=== PATIENT | male | born 1965 | race Caucasian/White ===

== ENCOUNTER 2023-05-16 00:15 | Day surgery (SDC) | payer OTHER, SELFPAY ==
[2023-05-04 13:40] VITALS: BMI 28.4
--- NOTE | 2023-05-13 11:22 | SUR.PREOP ---
Patient called regarding upcoming procedure. Voicemail left regarding appointment times.
--- NOTE | 2023-05-16 10:38 | WPDANESEPPF ---
Anes - Initial Pre Proc Eval Procedure: Operation Date: 05/16/23 11:30 Proposed Procedures p Esophagogastroduodenoscopy & Colonoscopy - Gianfranco Galdamez MD Date/Time: 05/16/23 10:38 Surgeon: Gianrfanco Galdamez MD Pre Op Diagnosis: GERD,hx of digestive system diseases, Crohn's Patient Data Age: 58 Gender: M Height: 1.68 m Weight: 80 kg Allergies Allergy/AdvReac Type Severity Reaction Status Date / Time No Known Allergies Allergy Verified 05/16/23 10:22 Home Medications Medication Instructions Recorded Confirmed Type aliskiren 300 mg tablet (Tekturna) 300 mg PO DAILY 04/28/23 05/04/23 History amlodipine 5 mg tablet (Norvasc) 5 mg PO DAILY 04/28/23 05/04/23 History atorvastatin 10 mg tablet (Lipitor) 10 mg PO DAILY 04/28/23 05/04/23 History budesonide 3 mg 9 mg PO QAM 8 weeks #168 ea 05/03/23 05/03/23 Rx capsule,delayed,extended release buspirone 30 mg tablet 30 mg PO BID 05/03/23 05/04/23 History chlorthalidone 25 mg tablet 25 mg PO DAILY 05/03/23 05/04/23 History colestipol 1 gram tablet 1 g PO BID #60 tabs 05/03/23 05/03/23 Rx fenofibrate micronized 134 mg 134 mg PO DAILY 05/03/23 05/04/23 History capsule hydroxychloroquine 400 mg tablet 400 mg PO DAILY 05/03/23 05/04/23 History insulin aspart See Rx Instructions .Route .COMPLEX 05/03/23 05/04/23 History (niacinamide)(U-100) 100 unit/mL(3 mL) subcutaneous pen (Fiasp FlexTouch U-100 Insulin) insulin glargine U-300 conc 300 70 unit subcut QACDINNER 05/03/23 05/04/23 History unit/mL (3 mL) subcutaneous pen (Toujeo Max U-300 SoloStar) zolpidem 12.5 mg tablet,extended 12.5 mg PO QHS 05/03/23 05/04/23 History release,multiphase I-Kvurgs-R-Cysteine 600 mg PO DAILY 05/04/23 05/04/23 History alpha lipoic acid 200 mg tablet 200 mg PO DAILY 05/04/23 05/04/23 History ascorbic acid (vitamin C) 1,000 mg 1 g PO DAILY 05/04/23 05/04/23 History tablet (Vitamin C With Estephania Hips) benfotiamine 300 mg PO BID 05/04/23 05/04/23 History certolizumab pegol 400 mg/2 mL 400 mg subcut [id number] 05/04/23 05/04/23 History (200 mg/mL x2) subcutaneous syringe kit (Cimzia) cholecalciferol (vitamin D3) 50 50 mcg PO DAILY 05/04/23 05/04/23 History mcg (2,000 unit) capsule (Vitamin D3) clonidine HCl 0.1 mg tablet 0.1 mg PO DAILY 05/04/23 05/04/23 History coQ10 (ubiquinol) 200 mg capsule 200 mg PO DAILY 05/04/23 05/04/23 History cyanocobalamin (vitamin B-12) 250 250 mcg PO DAILY 05/04/23 05/04/23 History mcg tablet (Vitamin B-12) dicyclomine 20 mg tablet 20 mg PO TID 05/04/23 05/04/23 History famotidine 40 mg tablet 40 mg PO BID 05/04/23 05/04/23 History folic acid 1 mg tablet 1 mg PO DAILY 05/04/23 05/04/23 History garlic 1,000 mg capsule 1,000 mg PO BID 05/04/23 05/04/23 History magnesium 250 mg tablet 250 mg PO DAILY 05/04/23 05/04/23 History melatonin 10 mg tablet 10 mg PO HS 05/04/23 05/04/23 History methotrexate (PF) 20 mg/0.8 mL 20 mg subcut WEEKLY 05/04/23 05/04/23 History subcutaneous syringe milk thistle 175 mg tablet 175 mg PO DAILY 05/04/23 05/04/23 History multivit with minerals-iron 18 1 tablet PO DAILY 05/04/23 05/04/23 History mg-folic ac 400 mcg-vit K 25 mcg tablet (Adults Multivitamin) omega 3-ogd-gzb-fish oil 900 1 cap PO DAILY 05/04/23 05/04/23 History mg-1,400 mg capsule,delayed release vitamin K2 100 mcg capsule 100 mcg PO DAILY 05/04/23 05/04/23 History zinc 50 mg tablet 50 mg PO DAILY 05/04/23 05/04/23 History ferrous sulfate 325 mg (65 mg 325 mg PO DAILY 1 month #30 tabs 05/16/23 Rx iron) tablet Patient hx anesthesia problems: none Family hx anesthesia problems: none Results Review: All pre-operative results and documents have been reviewed as part of the pre-operative evaluation. [facility] Past Medical History Medical History (Updated 05/03/23 @ 15:13 by Mica Rea, [employer]INATOR) Chronic diarrhea Crohn disease GERD (gastroesophageal reflux disease) Hematochezia High risk med
[2023-05-16 10:41] VITALS: BP 170/85; PULSE 87; RESP 20; TEMP 36.2; O2SAT 100; BMI 27.9
[2023-05-16] MEDS: LACTATED RINGERS 1,000 ML 150 ML IV CONT (10:45)
[2023-05-16 10:46] LABS: Glucose Point of Care 134 mg/dl (65-105)
--- NOTE | 2023-05-16 10:55 | WPDHPUPDATE1 ---
History and Physical Update Update Date/Time: 05/16/23 10:55 History and Physical has been reviewed, including an updated exam of the patient. There are NO changes in the patient's condition. Risks, benefits, and alternatives have been discussed and questions answered. Patient agrees to proceed with procedure.
--- NOTE | 2023-05-16 11:06 | SUR.OPER ---
EGD START: 1100; END: 1102. COLONOSCOPY START: 1107; END:1121.
[2023-05-16 11:26] VITALS: BP 97/39; PULSE 58; RESP 16; O2SAT 97
[2023-05-16 11:36] VITALS: BP 122/49; PULSE 64; RESP 16; O2SAT 97
[2023-05-16 11:46] VITALS: BP 124/68; PULSE 53; RESP 14; O2SAT 99
== END 2023-05-16 11:57 | disposition home health service (06) ==
PROVIDERS: PCP Physician Assistant; Visit Provider Internal Medicine Gastroenterology
PROC: 0DJ08ZZ Inspection of Upper Intestinal Tract, Via Natural or Artificial Opening Endoscopic (ICD-10-PCS; CPT 43235; principal; 2023-05-16 11:30)
DX: K50.10 Crohn's disease of large intestine without complications (principal); K21.9 Gastro-esophageal reflux disease without esophagitis; D64.9 Anemia, unspecified; Z79.4 Long term (current) use of insulin; Z79.899 Other long term (current) drug therapy; Z87.891 Personal history of nicotine dependence
CPT/HCPCS: 43239; 45380; 45385; 82948; 88305; J2001; J2371; J2704; J7120

== ENCOUNTER 2024-09-17 01:00 | Day surgery (SDC) | payer OTHER, SELFPAY ==
[2024-09-03 14:13] VITALS: BMI 31.6
--- OUTSIDE RECORDS SUMMARY | 2024-09-17 01:03 | XMS_ITS | Referral Summary ---
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 Name Role Phone Hima Pope Primary Care Provider Herman Jackson MD Unavailable Gianfranco Bailey MD Unavailable + Falguni Gonzalez MD Unavailable Encounters Date Type Department Care Team Description 07/31/2024 Orders Only [facility] Primary Care at [address] [place] [address] Hima Pope PA B12 deficiency (Primary Dx); Other iron deficiency anemia; Hypertension associated with diabetes (HCC); Type 2 diabetes mellitus with hyperglycemia, with long-term current use of insulin (HCC); Stage 3a chronic kidney disease (HCC) 07/30/2024 3:30 PM CDT Office Visit [facility] Primary Care at [address] [place] [address] Hima Pope PA Hypertension associated with diabetes (CMS/HCC) (Primary Dx); Type 2 diabetes mellitus with hyperglycemia, with long-term current use of insulin (HCC); Rheumatoid arthritis involving multiple sites with positive rheumatoid factor (HCC); Stage 3a chronic kidney disease (HCC); B12 deficiency; Pure hypercholesterolemia; Class 1 obesity with body mass index (BMI) of 33.0 to 33.9 in adult, unspecified obesity type, unspecified whether serious comorbidity present; Crohn's disease of small and large intestines with complication (HCC); Other iron deficiency anemia 07/24/2024 Orders Only [facility] Primary Care at [place] [address] [facility] [address] [place] [address] Hima Pope PA 06/18/2024 2:00 PM CDT Lab [facility] [address] [facility] [facility] [address] [place] [address] Iron deficiency anemia due to chronic blood loss 06/18/2024 2:30 PM CDT Office Visit [facility] [address] [place] [address] Medical Office [address] [place] [id number] Narayan Bourgeois MD Iron deficiency anemia due to chronic blood loss (Primary Dx); Crohn's disease of small and large intestines with complication (HCC) from Last 3 Months Allergies No known active allergies Medications garlic 100 mg tablet Take according to hrfn-[id number] r package directions 0 0 11/13/19 08 Active Additional Information Patient taking differently:100 mgoral 2 times daily, Reported on 07/30/2024 omega 1-rna-evy-fish oil (OMEGA-3 FISH OIL) 910-1,400 mg capsule as directed 0 06/17/19 13 Active Additional Information Patient taking differently: (No dose reported), Reported on 07/30/2024 ascorbic acid (ascorbic acid with ramona hips) 1,000 mg tablet po daily 0 06/17/19 13 Active Additional Information Patient taking differently:1,000 mgoral Daily, Reported on 07/30/2024 folic acid (FOLVITE) 1 mg tablet take 1 Tablet (1MG) by oral route every day 30 5 08/31/19 13 Active Additional Information Patient taking differently:1 mgoral Daily, Reported on 07/30/2024 multivitamin (ONE DAILY) tablet tablet take 1 tablet by ORAL route every day with food 0 09/19/19 10 Active coenzyme Q10 200 mg capsule Take 1 capsule (200 mg total) by mouth daily Active cyanocobalamin (Vitamin B-12) 500 mcg tabletIndicati ons:Prevention of Vitamin B12 Deficiency Take 1 tablet (500 mcg total) by mouth daily Active milk thistle 175 mg tablet Take 1 tablet (175 mg total) by mouth daily Active ACCU-CHEK FASTCLIX LANCING DEV kit USE TO TEST GLUCOSE 3 TO 4 TIMES DAILY 1 each 03/15/20 19 Active hydroxychloroq uine (PLAQUENIL) 200 mg tablet 07/19/19 20 Active BD Insulin Syringe Ultra-Fine 1 mL 31 gauge x 5/16 syringeIndicat ions:Type 2 diabetes mellitus with hyperglycemia, with long-term current use of insulin (HCC) USE TO INJECT INSULIN TWO TIMES A DAY 200 each 3 02/19/20 20 Active melatonin 10 mg capsule Take 10 mg by mouth nightly Active zinc 50 mg tablet Take by mouth Active benfotiamine 150 mg capsule Take by mouth A ctive alpha lipoic acid 300 mg capsule 1 capsule (300 mg total) Active busPIRone (BUSPAR) 30 mg tablet TAKE ONE (1) TABLET BY MOUTH TWICE DAILY 180 tablet 14 01/14/20 22 Active dicyclomine (BentyL) 20 mg tablet Take 1 tablet (20 mg total) by mouth every 6 (six) hours As needed 120 tablet 4 04/11/19 24 Active budesonide EC (ENTOCORT EC) 3 mg 24 hr capsule Take 3 capsules (9 mg total) by mouth every morning 05/16/19 24 Active colestipoL (COLESTID) 1 gram tablet Take 1 tablet (1 g total) by mouth 2 (two) times a day Active pen needle, diabetic (Pen Needle) 31 gauge x 5/16 needle Use to inject 4 times daily as directed 200 each 11 09/27/19 24 Active olmesartan (BENICAR) 40 mg tablet Take 1 tablet (40 mg total) by mouth daily 90 tablet 4 03/20/20 24 025 Active insulin degludec (TRESIBA) 100 unit/mL (3 mL) pen for injection Inject 0.7 mL (70 Units total) under the skin daily 63 mL 3 03/21/20 24 Active lancets (Accu-Chek Fastclix Lancet Drum) miscIndication s:Type 2 diabetes mellitus with hyperglycemia, with long-term current use of insulin (HCC) USE ONE NEW LANCET FOR BLOOD GLUCOSE MONITORING FOUR TIMES A DAY 306 each 1 06/05/19 25 Active zolpidem CR (AMBIEN CR) 12.5 mg CR tablet TAKE 1 TABLET BY MOUTH NIGHTLY NEEDED FOR SLEEP 90 tablet 06/23/19 25 Active blood glucose diagnostic (OneTouch Verio test strips) stripIndicatio ns:Type 2 diabetes mellitus with hyperglycemia, with long-term current use of insulin (HCC) USE TO CHECK SUGARS FOUR TIMES A DAY 400 strip 3 07/25/19 Active cloNIDine (CATAPRES) 0.1 mg tablet Take 1 tablet (0.1 mg total) by mouth nightly 90 tablet 11 07/25/19 25 Active famotidine (PEPCID) 40 mg tablet Take 1 tablet (40 mg total) by mouth 2 (two) times a day 180 tablet 3 07/25/19 25 Active amLODIPine (NORVASC) 5 mg tablet Take 1 tablet (5 mg total) by mouth daily 90 tablet 3 07/25/19 25 Active chlorthalidone (HYGROTON) 25 mg tablet Take 1 tablet (25 mg total) by mouth daily 90 tablet 07/25/19 25 Active fenofibrate micronized (LOFIBRA) 134 mg capsule Take 1 capsule (134 mg total) by mouth daily 90 capsule 07/25/19 25 Active upadacitinib (Rinvoq) 30 mg extended release tablet Take 1 tablet (30 mg total) by mouth daily Active atorvastatin (LIPITOR) 10 mg tablet Take 0.5 tablets (5 mg total) by mouth daily 45 tablet 3 07/31/19 25 Active insulin lispro (HumaLOG, ADMELOG) 100 unit/mL pen for injectionIndic ations:Type 2 diabetes mellitus with hyperglycemia, with long-term current use of insulin ([facility]) INJECT 10 UNITS UNDER THE SKIN 3 TIMES DAILY BEFORE MEALS 15 mL 3 09/15/19 25 Active insulin lispro (HumaLOG, ADMELOG) 100 unit/mL pen for injectionIndic ations:Type 2 diabetes mellitus with hyperglycemia, with long-term current use of insulin ([facility]) INJECT 10 UNITS UNDER THE SKIN 3 TIMES DAILY BEFORE MEALS 15 mL 3 03/08/20 24 025 Discontinued Active Problems Problem Noted Date Diagnosed Date CKD (chronic kidney disease) stage 3, GFR 30-59 ml/min 03/20/2024 Assessment & Plan (07/30/2024 10:17 AM CDT): He knows to avoid nephrotoxic drugs Iron deficiency anemia, unspecified 09/21/2021 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 Lipids great gets fall flu shot and suggest shingles shot Think about p shot serries. Pure hypercholesterolemia 12/28/2017 Assessment & Plan (07/30/2024 10:18 AM CDT): Counseled on heart healthy diet exercise Assessment & Plan (03/20/2024 2:14 PM RECORDER HELPER GRAVITY PROSPECTING): Counseled on heart healthy diet exercise Assessment & Plan (03/02/2022 4:19 PM RECORDER HELPER GRAVITY PROSPECTING): Chronic, well-controlled Continue current regimen Assessment & Plan (11/26/2021 3:29 PM CDT): ldl at 38 and trig 83 and will keep meds same discussed tgaper back on fenofibrte and or stati andnot wanting to cheange anything no added diet Given struggle to eat and tolerate foods frrom covid Assessment & Plan (08/25/2021 3:40 PM CDT): Chronic, well controlled Low fat Low cholesterol diet Exercise Continue statin therapy Assessment & Plan (02/19/2021 3:59 PM RECORDER HELPER GRAVITY PROSPECTING): LDL goal under 70 On Lipitor Assessment & Plan (08/14/2019 4:20 PM CDT): Goal of treatment , LDL cholesterol less than 100 ( less than 70 in patients with history of heart attacks and / or strokes ) NonHDL cholesterol ( total cholesterol minus HDL cholesterol ) goal less than 130 ( less than 100 in patients with history of heart attacks and / or strokes ) Low cholesterol, low fat diet was discussed and advised. Daily exercise Assessment & Plan (07/10/2019 8:38 AM CDT): ldl 67 and great on meds and no chages want here or lower or push meds if notYour cholesterol in the form of ldl (bad) cholesterol,hdl(good) cholesterol and triglycerides are monitored. The triglycerides respond to reduction/controll of your simple carbs/sugars In such items as sugared soda/sweet tea along with fruit juices(containing natural sugar) even if no added sugar is added. LDL cholesterol is reduced with reducing daily intake of fats and shena. saturated fats. The monosaturated fats like olive oil are not harmful except in the calories they contained. Whole milk cheese needs to be remembered along with whole milk products And limited. Assessment & Plan (02/14/2019 5:00 PM RECORDER HELPER GRAVITY PROSPECTING): ldl at 69 and gtreat and no changsYour cholesterol in the form of ldl (bad) cholesterol,hdl(good) cholesterol and triglycerides are monitored. The triglycerides respond to reduction/controll of your simple carbs/sugars In such items as sugared soda/sweet tea along with fruit juices(containing natural sugar) even if no added sugar is added. LDL cholesterol is reduced with reducing daily intake of fats and hsena. saturated fats. The monosaturated fats like olive oil are not harmful except in the calories they contained. Whole milk cheese needs to be remembered along with whole milk products And limited. Assessment & Plan (02/06/2019 3:38 PM RECORDER HELPER GRAVITY PROSPECTING): Goal of treatment , LDL cholesterol less than 100 ( less than 70 in patients with history of heart attacks and / or strokes ) NonHDL cholesterol ( total cholesterol minus HDL cholesterol ) goal less than 130 ( less than 100 in patients with history of heart attacks and / or strokes ) Low cholesterol, low fat diet was discussed and advised. Daily exercise On statin therapy Assessment & Plan (10/18/2018 4:40 PM CDT): ldl at 6.5 and good controll no changesYour cholesterol in the form of ldl (bad) cholesterol,hdl(good) cholesterol and triglycerides are monitored. The triglycerides respond to reduction/controll of your simple carbs/sugars In such items as sugared soda/sweet tea along with fruit juices(containing natural sugar) even if no added sugar is added. LDL cholesterol is reduced with reducing daily intake of fats and shena. saturated fats. The monosaturated fats like olive oil are not harmful except in the calories they contained. Whole milk cheese needs to be remembered along with whole milk products And limited. Assessment & Plan (08/02/2018 8:46 AM CDT): Goal of treatment , LDL cholesterol less than 100 ( less than 70 in patients with history of heart attacks and / or strokes ) NonHDL cholesterol ( total cholesterol minus HDL cholesterol ) goal less than 130 ( less than 100 in patients with history of heart attacks and / or strokes ) Low cholesterol, low fat diet was discussed and advised. Daily exercise Does not tolerate statins Would start Vascepa. Insurance not covering. Assessment & Plan (06/23/2018 3:56 PM CDT): ldl at 67 , discussed checking into coverage for mascepa 2000 bid. Stopping the fenofibrate and starting atorvastin 10. If not then stay on fenofibrate. Seeing jose daniel montano.m. Assessment & Plan (01/31/2018 3:24 PM CDT): Goal of treatment , LDL cholesterol less than 100 ( less than 70 in patients with history of heart attacks and / or strokes ) NonHDL cholesterol ( total cholesterol minus HDL cholesterol ) goal less than 130 ( less than 100 in patients with history of heart attacks and / or strokes ) Low cholesterol, low fat diet was discussed and advised. Daily exercise On statin therapy Assessment & Plan (12/28/2017 5:56 PM CDT): ldl at 85 and great. No changesYour cholesterol in the form of ldl (bad) cholesterol,hdl(good) cholesterol and triglycerides are monitored. The triglycerides respond to reduction/controll of your simple carbs/sugars In such items as sugared soda/sweet tea along with fruit juices(containing natural sugar) even if no added sugar is added. LDL cholesterol is reduced with reducing daily intake of fats and shena. saturated fats. The monosaturated fats like olive oil are not harmful except in the calories they contained. Whole milk cheese needs to be remembered along with whole milk products And limited. B12 deficiency 12/28/2017 Assessment & Plan (11/26/2021 3:29 PM CDT): b12 622 good Assessment & Plan (01/07/2021 3:54 PM CDT): b12 at 1192 and on 500 a day and will bvack off and r eport what takes Assessment & Plan (08/18/2020 3:14 PM CDT): Stay on b12 and check on return Assessment & Plan (04/16/2020 4:38 PM RECORDER HELPER GRAVITY PROSPECTING): b121 good and sta on meds as on Assessment & Plan (12/12/2019 8:54 AM CDT): Check on return Assessment & Plan (12/28/2017 5:48 PM CDT): Level at 364 and target above 400; take 500 5 days a week Low testosterone 04/27/2017 Assessment & Plan (12/12/2019 8:53 AM CDT): rtesolved with wt off likely reason Assessment & Plan (04/27/2017 4:46 PM RECORDER HELPER GRAVITY PROSPECTING): Mildly up and not at all sure itis mehthotrexate and expect to be steatatosis. Crohn's disease with complication 01/12/2017 Assessment & Plan (01/07/2021 3:56 PM CDT): Crohn stable and on meds Assessment & Plan (08/18/2020 3:14 PM CDT): On meds and congt roolled Assessment & Plan (04/16/2020 4:31 PM RECORDER HELPER GRAVITY PROSPECTING): Stable and cotn with gi rx Assessment & Plan (12/12/2019 8:54 AM CDT): Treated by gi Assessment & Plan (07/10/2019 8:37 AM CDT): Stopping antiinfolamtory and watch for flairs. Discussed antimalarials as something to discuss Assessment & Plan (10/18/2018 4:41 PM CDT): Seeing gi Assessment & Plan (08/24/2017 4:48 PM CDT): Se's and treated by rheum. Nocturia 12/15/2016 Assessment & Plan (02/14/2019 5:07 PM RECORDER HELPER GRAVITY PROSPECTING): Check psa Assessment & Plan (12/28/2017 5:59 PM CDT): Check psa Assessment & Plan (12/15/2016 5:40 PM CDT): Check psa o return Long-term current use of hig h risk medication other than anticoagulant 10/12/2016 Hypertension associated with diabetes 11/12/2015 Overview (07/09/2016): BENIGN HYPERTENSION Assessment & Plan (07/30/2024 10:17 AM CDT): Recommend DASH diet, heart healthy lifestyle, exercise. Discussed the risks of hypertension. Assessment & Plan (03/21/2024 6:01 PM RECORDER HELPER GRAVITY PROSPECTING): Chronic, well-controlled. Continue current regimen including olmesartan Assessment & Plan (03/20/2024 2:12 PM RECORDER HELPER GRAVITY PROSPECTING): Recommend DASH diet, heart healthy lifestyle, exercise. Discussed the risks of hypertension. Assessment & Plan (09/27/2023 2:51 PM CDT): Chronic, well controlled Continue current meds including Tekturna Assessment & Plan (03/22/2023 2:51 PM RECORDER HELPER GRAVITY PROSPECTING): Chronic, well controlled Continue current regimen, including amlodipine Assessment & Plan (03/11/2023 1:22 PM RECORDER HELPER GRAVITY PROSPECTING): Recommend DASH diet, heart healthy lifestyle, exercise. Discussed the risks of hypertension. Assessment & Plan (09/03/2022 2:36 PM CDT): Recommend DASH diet, heart healthy lifestyle, exercise. Discussed the risks of hypertension. Assessment & Plan (08/26/2022 4:30 PM CDT): Chronic, well-controlled Continue current regimen including chlorthalidone Assessment & Plan (03/04/2022 12:21 PM RECORDER HELPER GRAVITY PROSPECTING): Recommend DASH diet, heart-healthy lifestyle, exercise. Discussed the risks of hypertension. Assessment & Plan (03/02/2022 4:19 PM RECORDER HELPER GRAVITY PROSPECTING): Well controlled, Continue current regimen Assessment & Plan (11/26/2021 3:24 PM CDT): bp good and bld sugr under endo no specific diet changes. Assessment & Plan (08/25/2021 3:40 PM CDT): Chronic, well controlled Continue current meds Assessment & Plan (07/23/2021 12:42 PM CDT): Recommend DASH diet, heart-healthy lifestyle, exercise. Discussed the risks of hypertension. Assessment & Plan (06/22/2021 3:31 PM CDT): Recommend DASH diet, heart healthy lifestyle, exercise. Discussed the risks of hypertension. Assessment & Plan (01/07/2021 4:00 PM CDT): The bp good and no chagds in meds Hypertension, Medical treament revolves around weight control, salt management, and meds when necessary. long as weight loss is necessary and you are able to drop weight we can cont to monitor the blood pressure and not add meds. Once the weight is not changing then it becomes nesessary to add meds to be able to reach the goal bp. Assessment & Plan (08/19/2020 4:00 PM CDT): Goal blood pressure is less than 140/85 Low salt diet was discussed andd recommended The importance of daily aerobic exercise was also emphasized. Continue current meds, including NIKA-I or ARB, e.g. Assessment & Plan (08/18/2020 3:09 PM CDT): The bp on top touch high and a1c great at 6.3 and keep Sugar tight.Hypertension, Medical treament revolves around weight control, salt management, and meds when necessary. long as weight loss is necessary and you are able to drop weight we can cont to monitor the blood pressure and not add meds. Once the weight is not changing then it becomes nesessary to add meds to be able to reach the goal bp.Diabetes management or controll revolves around several core concepts : weight controll,controlling the intake of rapidly absorbed sugars(read simple carbs that get rapidly absorbed such as sweetened tea,sugared soda,fruit juices or portions of fruit over 1/2 cup at a time) as well at the need to increase the sugar burned up through an n increase in your baseline activity.Breads,potatotes(white,yellow,sweet are all the same),most cereals and noodles all breakdown to sugar rapidly. This rapid breakdown or absorption challenges the body into handling this surge of sugar. The more these factors are controlled the more the sugar will be controlled. Assessment & Plan (04/16/2020 4:34 PM RECORDER HELPER GRAVITY PROSPECTING): The bp here on high side and ask to bring I meter and isael sumner chesk as High here and good at home endo alsonoted to be up. And a1c tight at 6.2Hypertension, Medical treament revolves around weight control, salt management, and meds when necessary. long as weight loss is necessary and you are able to drop weight we can cont to monitor the blood pressure and not add meds. Once the weight is not changing then it becomes nesessary to add meds to be able to reach the goal bp.Diabetes management or controll revolves around several core concepts : weight controll,controlling the intake of rapidly absorbed sugars(read simple carbs that get rapidly absorbed such as sweetened tea,sugared soda,fruit juices or portions of fruit over 1/2 cup at a time) as well at the need to increase the sugar burned up through an n increase in your baseline activity.Breads,potatotes(white,yellow,sweet are all the same),most cereals and noodles all breakdown to sugar rapidly. This rapid breakdown or absorption challenges the body into handling this surge of sugar. The more these factors are controlled the more the sugar will be controlled. Assessment & Plan (02/19/2020 3:52 PM RECORDER HELPER GRAVITY PROSPECTING): Goal blood pressure is less than 140/85 Low salt diet was discussed andd recommended The importance of daily aerobic exercise was also emphasized. Continue current meds, Assessment & Plan (12/12/2019 8:47 AM CDT): bp well controlled and no changes in meds on bp and see's nick chavez Hypertension, Medical treament revolves around weight control, salt management, and meds when necessary. long as weight loss is necessary and you are able to drop weight we can cont to monitor the blood pressure and not add meds. Once the weight is not changing then it becomes nesessary to add meds to be able to reach the goal bp.Diabetes management or controll revolves around several core concepts : weight controll,controlling the intake of rapidly absorbed sugars(read simple carbs that get rapidly absorbed such as sweetened tea,sugared soda,fruit juices or portions of fruit over 1/2 cup at a time) as well at the need to increase the sugar burned up through an n increase in your baseline activity.Breads,potatotes(white,yellow,sweet are all the same),most cereals and noodles all breakdown to sugar rapidly. This rapid breakdown or absorption challenges the body into handling this surge of sugar. The more these factors are controlled the more the sugar will be controlled. Assessment & Plan (08/14/2019 4:20 PM CDT): Goal blood pressure is less than 140/85 Low salt diet recommended Daily aerobic exercise Continue current meds, including NIKA-I or ARB Assessment & Plan (07/10/2019 8:36 AM CDT): Reports bp less then 130/80 a1xc 6.2 and good no chans in meds for bp or d.m. cont watching and moptnioringHypertension, Medical treament revolves around weight control, salt management, and meds when necessary. long as weight loss is necessary and you are able to drop weight we can cont to monitor the blood pressure and not add meds. Once the weight is not changing then it becomes nesessary to add meds to be able to reach the goal bp.Diabetes management or controll revolves around several core concepts : weight controll,controlling the intake of rapidly absorbed sugars(read simple carbs that get rapidly absorbed such as sweetened tea,sugared soda,fruit juices or portions of fruit over 1/2 cup at a time) as well at the need to increase the sugar burned up through an n increase in your baseline activity.Breads,potatotes(white,yellow,sweet are all the same),most cereals and noodles all breakdown to sugar rapidly. This rapid breakdown or absorption challenges the body into handling this surge of sugar. The more these factors are controlled the more the sugar will be controlled. Assessment & Plan (02/14/2019 5:02 PM RECORDER HELPER GRAVITY PROSPECTING): The bp high and replace losartan 100 with avapro 300 and watch bp . a1c down to 5.8 Then a week later 6.2 and great. Hypertension, Medical treament revolves around weight control, salt management, and meds when necessary. long as weight loss is necessary and you are able to drop weight we can cont to monitor the blood pressure and not add meds. Once the weight is not changing then it becomes nesessary to add meds to be able to reach the goal bp.Diabetes management or controll revolves around several core concepts : weight controll,controlling the intake of rapidly absorbed sugars(read simple carbs that get rapidly absorbed such as sweetened tea,sugared soda,fruit juices or portions of fruit over 1/2 cup at a time) as well at the need to increase the sugar burned up through an n increase in your baseline activity.Breads,potatotes(white,yellow,sweet are all the same),most cereals and noodles all breakdown to sugar rapidly. This rapid breakdown or absorption challenges the body into handling this surge of sugar. The more these factors are controlled the more the sugar will be controlled. Assessment & Plan (02/06/2019 3:37 PM RECORDER HELPER GRAVITY PROSPECTING): Goal blood pressure is less than 140/85 Low salt diet recommended Daily aerobic exercise Continue current meds, including NIKA-I or ARB Assessment & Plan (10/18/2018 4:39 PM CDT): The bp high and will cheasnge to [place] and see if will drop enough and a1c at 6.5 great.Hypertension, Medical treament revolves around weight control, salt management, and meds when necessary. long as weight loss is necessary and you are able to drop weight we can cont to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 07/16/2024 7:02 AM CDT 07/16/2024 7:02 AM CDT Narrative [facility] - 07/17/2024 4:14 AM CDT FASTING:YES FASTING: YES us Hima PUENTES LAB BLOOD ORDERABLES Fi nal Result [facility] [address] [place] [address] * Lipid panel with reflex to direct LDL (07/16/2024 7:02 AM CDT) Pathologist [facility] Cholesterol 150 <200 mg/dL [facility] HDL 55 > OR = 40 mg/dL [facility] Triglycerides 116 <150 mg/dL [facility] LDL 75 mg/dL (calc) [facility] Comment: Reference range: <100 Desirable range <100 mg/dL for primary prevention; <70 mg/dL for patients with CHD or diabetic patients with > or = 2 CHD risk factors. LDL-C is now calculated using the Hayden-Erinn calculation, which is a validated novel method providing better accuracy than the Friedewald equation in the estimation of LDL-C. Hayden SS et al. KAMI. 2013;310(19): 9432-6389 (http://education.[employer].Aspen Evian/faq/ZDM098) Chol/HDL ratio 2.7 <5.0 (calc) [facility] Non-HDL, (LDL+VLDL) 95 <130 mg/dL (calc) [facility] Comment: For patients with diabetes plus 1 major ASCVD risk factor, treating to a non-HDL-C goal of <100 mg/dL (LDL-C of <70 mg/dL) is considered a therapeutic option. Blood 07/16/2024 7:02 AM CDT 07/16/2024 7:02 AM CDT Narrative [facility] - 07/17/2024 4:14 AM CDT FASTING:YES FASTING: YES Hima PUENTES LAB BLOOD ORDERABLES Fi nal Result Performing Organization Address [facility] Co de Phone Number [facility] [address] [place] [address] * Iron profile w/ IBC (07/16/2024 7:02 AM CDT) Pathologist [facility] Iron 149 50 - 180 mcg/dL [facility] TIBC 398 250 - 425 mcg/dL (calc) [facility] Iron saturation 37 20 - 48 % (calc) [facility] Blood 07/16/2024 7:02 AM CDT 07/16/2024 7:02 AM CDT Narrative [facility] - 07/17/2024 4:14 AM CDT FASTING:YES FASTING: YES Hima PUENTES LAB BLOOD ORDERABLES Fi nal Result Performing Organization Address [facility] de Phone Number [facility] [address] [place] [address] * (ABNORMAL) CBC with auto differential (07/16/2024 7:02 AM CDT) WBC 7.8 3.8 - 10.8 Thousand/u L [facility] RBC, POC 5.06 4.20 - 5.80 Million/uL [facility] Hgb 14.9 13.2 - 17.1 g/dL [facility] Hct 45.6 38.5 - 50.0 % [facility] MCV 90.1 80.0 - 100.0 fL [facility] MCH 29.4 27.0 - 33.0 pg [facility] MCHC 32.7 32.0 - 36.0 g/dL [facility] Comment: For adults, a slight decrease in the calculated MCHC value (in the range of 30 to 32 g/dL) is most likely not clinically significant; however, it should be interpreted with caution in correlation with other red cell parameters and the patient's clinical condition. Rdw 12.6 11.0 - 15.0 % [facility] Platelets 365 140 - 400 Thousand/u L [facility] MPV 9.6 7.5 - 12.5 fL [facility] Neutrophils, abs 3,830 1,500 - 7,800 cells/uL [facility] Lymphocytes, abs 2,480 850 - 3,900 cells/uL [facility] Monocyte abs 1,162(H) 200 - 950 cells/uL [facility] Eosinophils, abs 289 15 - 500 cells/uL [facility] Basophils, abs 39 0 - 200 cells/uL [facility] Neutrophils 49.1 % [facility] Lymphocyte pct 31.8 % [facility] Monocytes 14.9 % [facility] Eosinophils 3.7 % [facility] Basophils 0.5 % [facility] Blood 07/16/2024 7:02 AM CDT 07/16/2024 7:02 AM CDT Narrative [facility] - 07/17/2024 4:14 AM CDT FASTING:YES FASTING: YES us Hima PUENTES LAB BLOOD ORDERABLES Fi nal Result [facility] [address] [address] * (ABNORMAL) Hemoglobin A1c (07/16/2024 7:02 AM CDT) Hgb A1C 6.8(H) <5.7 % of total Hgb [facility] Comment: For someone without known diabetes, a hemoglobin A1c value of 6.5% or greater indicates that they may have diabetes and this should be confirmed with a follow-up test. For someone with known diabetes, a value <7% indicates that their diabetes is well controlled and a value greater than or equal to 7% indicates suboptimal control. A1c targets should be individualized based on duration of diabetes, age, comorbid conditions, and other considerations. Currently, no consensus exists regarding use of hemoglobin A1c for diagnosis of diabetes for children. Blood 07/16/2024 7:02 AM CDT 07/16/2024 7:02 AM CDT Narrative [facility] - 07/17/2024 4:14 AM CDT FASTING:YES FASTING: YES Hima PUENTES LAB BLOOD ORDERABLES Fi nal Result [facility] [address] [place] [address] * (ABNORMAL) Comprehensive metabolic panel (07/16/2024 7:02 AM CDT) [facility] Glucose 64(L) 65 - 99 mg/dL [facility] Comment: Fasting reference interval BUN 19 7 - 25 mg/dL [facility] Creatinine 1.18 0.70 - 1.30 mg/dL [facility] eGFR 72 > OR = 60 mL/min/1.7 3m2 [facility] BUN/creat ratio SEE NOTE: 6 - 22 (calc) [facility] Comment: Not Reported: BUN and Creatinine are within reference range. Sodium 137 135 - 146 mmol/L [facility] Potassium, pl 4.0 3.5 - 5.3 mmol/L [facility] Chloride 99 98 - 110 mmol/L [facility] CO2 27 20 - 32 mmol/L [facility] Calcium 9.6 8.6 - 10.3 mg/dL [facility] Protein, sr 7.1 6.1 - 8.1 g/dL [facility] Albumin 4.7 3.6 - 5.1 g/dL [facility] GLOBULIN 2.4 1.9 - 3.7 g/dL (calc) [facility] Alb/glob ratio 2.0 1.0 - 2.5 (calc) [facility] Bilirubin, total 0.4 0.2 - 1.2 mg/dL [facility] Alk phos 75 35 - 144 U/L [facility] AST 37(H) 10 - 35 U/L [facility] ALT (SGPT) 40 9 - 46 U/L [facility] Blood 07/16/2024 7:02 AM CDT 07/16/2024 7:02 AM CDT Narrative [facility] - 07/17/2024 4:14 AM CDT FASTING:YES FASTING: YES us Hima PUENTES LAB BLOOD ORDERABLES Fi nal Result [facility] [address] [place] [address] * Differential, auto (06/18/2024 2:05 PM CDT) Neutrophil abs 3.4 1.5 - 6.5 K/cumm Comment:Testing performed by : [facility] [address], Medical Office [place] [address], [place] [address] Imm gran abs 0.0 0.0 - 0.1 K/cumm [facility] (IKES FORK) Comment:Testing performed by : [facility] [address], Medical Office [place] [address], [place] [address] Lymphocyte abs 1.9 0.8 - 3.3 K/cumm [facility] (IKES FORK) Comment:Testing performed by : [facility] [address], Medical Office [facility] [address], [place] [address] Monocyte abs 0.8 0.2 - 0.8 K/cumm [facility] (IKES FORK) Comment:Testing performed by : [facility] [address], Medical Office [facility] [address], [place] [address] Eosinophil abs 0.2 0.0 - 0.5 K/cumm [facility] (IKES FORK) Comment:Testing performed by : [facility] [address], Medical [address], [place] [address] Basophil abs 0.0 0.0 - 0.1 K/cumm [facility] ([place]) Comment:Testing performed by : [facility] [address], Medical Office [address], [place] [address] Neutrophil pct 53.4 % [facility] ([place]) Comment: Interpretive Data Percent cell count reference ranges are not reported, since discordance with absolute values may lead to misinterpretation of CBC data. Current Interpretive Data was last revised on 2022. Testing performed by: [facility] [address], Medical Office [facility] [address], [place] [address] Imm gran pct 0.5 % [facility] ([place]) Comment: Interpretive Data Percent cell count reference ranges are not reported, since discordance with absolute values may lead to misinterpretation of CBC data. Current Interpretive Data was last revised on 2022. Testing performed by: [facility] [address], Medical Office [facility] [address], [place] [address] Lymphocyte pct 29.0 % [facility] ([place]) Comment: Interpretive Data Percent cell count reference ranges are not reported, since discordance with absolute values may lead to misinterpretation of CBC data. Current Interpretive Data was last revised on 2022. Testing performed by: [facility] [address], Medical Office [facility] [address], [place] [address] Monocyte pct 12.9 % [facility] ([place]) Comment: Interpretive Data Percent cell count reference ranges are not reported, since discordance with absolute values may lead to misinterpretation of CBC data. Current Interpretive Data was last revised on 2022. Testing performed by: [facility] [address], Medical Office [address], [place] [address] Eosinophil pct 3.6 % [facility] ([place]) Comment: Interpretive Data Percent cell count reference ranges are not reported, since discordance with absolute values may lead to misinterpretation of CBC data. Current Interpretive Data was last revised on 2022. Testing performed by: [facility] [address], Medical Office [address], [place] [address] Basophil pct 0.6 % SHELLEY PENA (TE) Comment: Interpretive Data Percent cell count reference ranges are not reported, since discordance with absolute values may lead to misinterpretation of CBC data. Current Interpretive Data was last revised on 2022. Testing performed by: [facility] [address], Medical Office [address], [place] [address] Blood 06/18/2024 2:05 PM CDT 06/18/2024 2:09 PM CDT Reyna Maguire STERILIZATION TECH LAB BLOOD ORDERABLES Final Result Performing Organization Address City/[facility] Co de Phone Number SHELLEY PENA (IKES FORK) 1 [facility] Department [place] [address] * (ABNORMAL) Iron profile w/ IBC (06/18/2024 2:05 PM CDT) Iron 50 50 - 150 mcg/dL Comment:Testing performed by : [facility], [place], [address] TIBC 333 250 - 400 mcg/dL SHELLEY PENA (TE) Comment:Testing performed by : [place], [address] Transferrin saturation 15(L) 20 - 50 % SHELLEY PENA (IKES FORK) Comment:Testing performed by : [place], [address] Blood 06/18/2024 2:05 PM CDT 06/18/2024 3:58 PM CDT Reyna Maguire STERILIZATION TECH LAB BLOOD ORDERABLES Final Result Performing Organization Address City/[facility]/ZIP Co de Phone Number SHELLEY PENA (IKES FORK) 1 [facility] Department [place] [address] * CBC with auto differential (06/18/2024 2:05 PM CDT) WBC 6.4 3.8 - 9.9 K/cumm Comment:Testing performed by : [facility] [address], Medical Office [address], [place] [address] Hgb 13.4 13.0 - 17.5 g/dL [facility] ([place]) Comment:Testing performed by : [facility] [address], Medical Office [address], [place] [address] Hct 40.1 38.9 - 50.3 % [facility] ([place]) Comment:Testing performed by : [facility] [address], Medical Office [address], [place] [address] Plt 266 150 - 400 K/cumm [facility] ([place]) Comment:Testing performed by : [facility] [address], Medical Office [facility] [address], [place] [address] MPV 9.3 9.1 - 12.3 fL [facility] ([place]) Comment:Testing performed by : [facility] [address], Medical Office [address], [place] [address] RBC 4.55 4.30 - 5.80 M/cumm [facility] ([place]) Comment:Testing performed by : [facility] [address], Medical Office [address], [place] [address] MCV 88.1 81.3 - 96.4 fL [facility] ([place]) Comment:Testing performed by : [facility] [address], Medical Office [address], [place] [address] MCH 29.5 27.1 - 33.3 pg [facility] ([place]) Comment:Testing performed by : [facility] [address], Medical Office [address], [place] [address] MCHC 33.4 32.3 - 35.7 g/dL [facility] ([place]) Comment:Testing performed by : [facility] [address], Medical Office [address], [place] [address] RDW CV 12.3 11.1 - 14.9 % [facility] ([place]) Comment:Testing performed by : [facility] [address], Medical Office [address], [place] [address] RDW SD 40.3 35.7 - 48.1 fL SHELLEY PENA (IKES FORK) Comment:Testing performed by : [facility] [address], Medical Office [facility] [address], [place] [address] NRBC abs Not Measured 0.00 - 0.01 K/cumm SHELLEY PENA (IKES FORK) Comment:Testing performed by : [facility] [address], Medical Office [facility] [address], [place] [address] Blood 06/18/2024 2:05 PM CDT 06/18/2024 2:09 PM CDT us Reyna Maguire STERILIZATION TECH LAB BLOOD ORDERABLES Final Result SHELLEY PENA (IKES FORK) 1 [facility] Department [place] [address] * Ferritin (06/18/2024 2:05 PM CDT) Ferritin 84 30 - 400 ng/mL Comment:Testing performed by : [facility], [facility], [place], [address] Blood 06/18/2024 2:05 PM CDT 06/18/2024 3:58 PM CDT us Reyna Maguire STERILIZATION TECH LAB BLOOD ORDERABLES Final Result SHELLEY PENA (IKES FORK) 1 [facility] Department [place] [address] * Albumin Creatinine Ratio, Urine (03/05/2024 7:02 AM RECORDER HELPER GRAVITY PROSPECTING) Creatinine, ur 53 20 - 320 mg/dL [facility] Microalbumin, ur 0.3 See Note: mg/dL [facility] Comment: Reference Range: Reference Range Not established Microalbumin/creat ratio 6 <30 mg/g creat [facility] Comment: The ADA defines abnormalities in albumin excretion as follows: Albuminuria Category Result (mg/g creatinine) Normal to Mildly increased <30 Moderately increased 30-299 Severely increased > OR = 300 The ADA recommends that at least two of three specimens collected within a 3-6 month period be abnormal before considering a patient to be within a diagnostic category. Urine 03/05/2024 7:02 AM RECORDER HELPER GRAVITY PROSPECTING 03/05/2024 7:03 AM RECORDER HELPER GRAVITY PROSPECTING Narrative [facility] - 03/06/2024 6:23 AM RECORDER HELPER GRAVITY PROSPECTING FASTING:YES FASTING: YES Hima PUENTES LAB URINE ORDERABLES Fi nal Result [facility] [address] [place] [address] * (ABNORMAL) DIABETES EYE EXAM (07/13/2023 8:04 AM CDT) Result [facility] Historical Provider HEALTH MAINTENANCE Final Result * Colonoscopy (05/16/2023) Anatomical Region Laterality Modality Other 05/16/2023 Impressions 05/16/2023 Cimzia is no longer working. Will prescribe rinvoq instead of cimzia (his clinical laboratory technician also favored this approach), will need induction dose for 12 weeks then maintenance. Colonoscopy 1 year after initiation of rinvoq to assess response. Result [facility] Generic External Data Provider ENDOSCOPY PROCEDU RES Final Result * DIABETES FOOT EXAM (10/18/2018) Diabetic Foot Exam Normal Result [facility] Historical Provider HEALTH MAINTENANCE Final Result * Serum Hepatitis C ab (06/16/2012 4:27 PM CDT) HCV ab Negative Negative HISTORICAL RESULTS Serum 06/16/2012 4:27 PM CDT Result [facility] Yodit Uriarte MD LAB BLOOD ORDERABLES Final Resul t Performing Organization Address City/[facility]/ZIP Co de Phone Number HISTORICAL RESULTS from Last 3 Months or Most Recently Relevant to Health Maintenance Insurance HEALTHCARE HMO HEALTHCARE HMO HEALTHCARE HMO Advance Directives For more information, please contact: [phone] * Full Code (Latest Code Status on File) Date Activated Date Inactivated Comments 06/15/2021 7:09 AM 06/15/2021 1:27 PM * Full Code Date Activated Date Inactivated Comments 06/15/2021 7:09 AM 06/15/2021 7:09 AM * Full Code Date Activated Date Inactivated Comments 03/20/2018 7:20 AM 03/20/2018 11:10 AM * Full Code Date Activated Date Inactivated Comments 03/20/2018 7:20 AM 03/20/2018 7:20 AM Care Teams 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
--- OUTSIDE RECORDS SUMMARY | 2024-09-17 01:03 | XMS_ITS | Encounter Summary ---
Author Organization [facility] Address [address] [place] [address] Phone Care Team Providers Care Supervisor [employer]ar [employer] Name Role Phone Can Puentes MD Primary Care Provi andria Hima Pope Primary Care Provider Herman Jackson MD Unavailable Gianfranco Bailey MD Unavailable + Falguni Gonzalez MD Unavailable Encounter Details Date Type Department Care Team (Late st Contact Info) Description 08/13/2017 Orders Only [facility] ProviderVaibhav MD [facility] [place] [address] Social History Tobacco Use Types Packs/Day Years Used Date Smoking Tobacco: Former Smokeless Tobacco: Former Comments:Smoking History Pac ks/day: 2003 Packs Alcohol Use Standard Drinks/Week Comments Yes 0 (1 standard drink = 0.6 oz pur e alcohol) Sex and Gender Information Value Date Recorded Sex Assigned at Not on file Legal Sex 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 us Historical Provider LAB BLOOD ORDERABLES Joselyn l Result documented in this encounter Visit Diagnoses Not on filedocumented in this encounter Care Teams Supervisor [employer]ar [employer] Relationship Specialty Start Date End Date Can Puentes MD PCP - General 07/02/16 12/15/21 Hima Pope PA [address] [place] [address] PCP - General Internal Medicine 12/16/21 [place] [address] [address] Consulting Physician Endocrinology Diabetes & Metabolism 03/20/24 Gianfranco Bailey MD [address] GASTROENTEROLOGY [place], [place] [address] Referring Physician Gastroenterology 07/30/24 Falguni Gonzalez MD [address] [place] [address] Referring Physician Rheumatology 07/30/24 documented as of this encounter
--- OUTSIDE RECORDS SUMMARY | 2024-09-17 01:03 | XMS_ITS | Clinical Summary ---
Author Organization [facility] [employer] Address [address] [place] [address] Care Team Providers Care Network Management Specialist Name Role Phone Hima Pope Primary Care Provider Falguni Talbot MD Unavailable Source Comments [facility] [employer],non-owned Affiliates and Associated Physician Practices is amultiple site organization consisting of ambulatory clinics and hospital sitesin [place], [place], [place] and [place]. This disclosure is being madepursuant to the Care Everywhere program and may not contain all information available regarding this patient. Last updated 17.[facility] [employer] Allergies No known active allergies Medications * Be aware that medications may not be up to date on this document. Alwaysverify current medications with the patient. aliskiren (TEKTURNA) 300 MG tablet TAKE 1 TABLET DAILY 1 Active amLODIPine (NORVASC) 5 MG tablet TAKE 1 TABLET BY MOUTH EVERY DAY 0 Active busPIRone (BUSPAR) 30 MG tablet TAKE ONE (1) TABLET BY MOUTH TWICE DAILY 0 Active chlorthalidone (HYGROTON) 25 MG tablet TAKE 1 TABLET BY MOUTH EVERY DAY 0 Active cloNIDine (CATAPRES) 0.1 MG tablet Take 1 (one) tablet by mouth once daily 0 Active ubiquinine/vit palafox-e (COENZYME Q10) 200 MG capsule Take 200 mg by mouth once daily Active vitamin B-12 (CYANOCOBALAMI N) 500 MCG tablet Take 1 (one) tablet by mouth once daily Active fenofibrate micronized (LOFIBRA) 134 MG capsule TAKE 1 CAPSULE DAILY 0 Active ONETOUCH VERIO test strip 1 Active TOUJEO SOLOSTAR pen Inject 70 (seventy) Units subcutaneously once daily 1 Active insulin pen needle (BD PEN NEEDLE MICRO U/F) 32G X 6 MM MISC USE WITH INSULIN 3 TIMES A DAY 0 Active mesalamine EC (LIALDA) 1.2 g tablet TAKE 2 TABLETS EVERY MORNING WITH A MEAL 0 Active Milk Thistle Extract 175 MG Take 175 mg by mouth once daily Active omeprazole (PRILOSEC) 40 MG capsule Take 1 (one) capsule by mouth once daily 1 Active zolpidem CR (AMBIEN CR) 12.5 MG tablet 1 po q hs 1 Active Accu-Chek FastClix Lancets USE TO TEST BLOOD SUGARS 4 TIMES A DAY 0 Active Multiple Vitamins-Tractor Operator als (ONE-A-DAY 50 PLUS PO) Active [place]-3 1400 MG Active Vit C-Cholecalcife rol-Julio Hip (VITAMIN C & D3/JULIO HIPS PO) Active magnesium 250 MG tablet Take 1 (one) tablet by mouth once daily Active melatonin 10 MG capsule Take 1 (one) capsule by mouth at bedtime Active Acetylcysteine (NAC PO) Active ferrous sulfate 325 (65 FE) MG tablet Take 1 (one) tablet by mouth 2 times daily with morning and evening meal 100 tablet 4 1 Active lidocaine (LIDODERM) 5 % patch Apply 1 (one) patch to skin every 12 hours as needed 30 patch 3 1 Active Additional Information Patient not taking.Reported on 09/28/2022 atorvastatin (LIPITOR) 10 MG tablet Take 1 (one) tablet by mouth once daily 1 Active insulin syringe-needle (BD ULTRAFINE) 29G X 1/2 1 ML syringe Use 1 syringe to inject methotrexate subcutaneously every 7 days. (100 syringes/box). 30 Each 3 2 Active dicyclomine (Bentyl) 20 MG tablet Take 1 (one) tablet by mouth every 6 hours as needed 2 Active insulin aspart, w/Niacinamide, (Fiasp FlexTouch) pen Inject 15 (fifteen) Units subcutaneously 3 times daily with meals 3 Active famotidine (Pepcid) 40 MG tablet 3 Active 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 Sodium (methotrexate, PF,) 50 MG/2ML injectionIndic ations:Inflamm atory arthritis Inject 0.8 mL subcutaneously every 7 days 8 mL 2 3 Active hydroxychloroq uine (Plaquenil) 200 MG tabletIndicati ons:Inflammato ry arthritis Take 2 (two) tablets by mouth once daily 180 tablet 3 5 Active Active Problems Problem Noted Date Diagnosed Date Inflammatory arthritis 11/11/2020 Crohn's disease with complication 11/11/2020 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 (AF LURIA, FLUZONE TRIVALENT; 6MO+) (IIV3) 01/03/2012 FLU VACCINE QUAD IIV4 PF ID 01/19/2016, 5 FLU VACCINE QUAD IIV4 SPLIT 0.25 ML IM 02/13/2014 INFLUENZA VACCINE 01/05/2012,01/14/2011,02/13/20 09 INFLUENZA VACCINE, QUADR. (A FLURIA, FLUZONE QUADRIVALENT; 6MO+) (IIV4) 01/24/2013 INFLUENZA VACCINE, QUADR. (F LUZONE; FLULAVAL; FLUARIX; AFLURIA QUADRIVALENT; 6MO+), 0.5 ML (IIV4) 04/16/2020,02/14/2019,12/28/2017,2016,01/18/2016 PNEUMOCOCCAL PPSV23 12/28/2017 Pneumococcal Pcv13 Conj 02/19/2015 TDAP (7yrs+) 10/18/2018 Family History Medical History Relation Name Comments Diabetes - Type 2 Father passed at 49 Hypertension Father Lung Disease Father Blood Clots Mother Cancer Mother passed at 53 Lung Disease Mother Relation Name Status Comments Father Mother Other 1 sibling Alive Other 2 sibling Alive Social History Tobacco Use Types Packs/Day Years Used Date Smoking Tobacco: Former Cigarettes Smokeless Tobacco: Never Tobacco Cessation:Counseling Given: Not Answered Alcohol Use Standard Drinks/Week Comments Never 0 (1 standard drink = 0.6 oz pur e alcohol) PHQ-2 Answer Date Recorded Patient Health Questionnaire-2 Score 0 10/14/2023 Sex and Gender Information Value Date Recorded Sex Assigned at Not on file Legal Sex Male 11:57 AM CDT Gender Identity Not on file Sexual Orientation Not on file Last Filed Vital Signs Vital Sign Reading Time Taken Comments Blood Pressure 139/54 10/14/2023 2:57 PM CDT Pulse 58 10/14/2023 2:57 PM CDT Temperature 37.1 C (98.7 F) 11/11/2020 2:05 PM CDT Respiratory Rate 20 04/27/2022 1:57 PM LENS GRINDER APPRENTICE Oxygen Saturation 100% 02/08/2023 3:38 PM LENS GRINDER APPRENTICE Inhaled Oxygen Concentration - - Weight 85.7 kg (189 lb) 10/14/2023 2:57 PM CDT Height 167.6 cm (5' 6) 10/14/2023 2:57 PM CDT Body Mass Index 30.51 10/14/2023 2:57 PM CDT Plan of Treatment Upcoming Encounters Date Type Department Care Team (Late st Contact Info) Description 10/16/2024 2:40 PM CDT Office Visit [facility] - Rheumatology [address] [place] [id number] Falguni Gonzalez MD [address] [place] [address] [phone] Health Maintenance Due Date Last Done Comments COLOGUARD (AGES 45-75) - COLON CA SCREENING 1967 CT COLONOGRAPHY - COLON CA SCREENING 1967 FIT - COLON CA SCREENING 1967 FLEX SIG - COLON CA SCREENING 1967 HIV SCREENING 1982 HEPATITIS B VACCINE (1 of 3 - 19+ 3-dose series) 1986 ZOSTER VACCINE (1 of 2) 2017 PNEUMOCOCCAL VACCINE 50+ (3 of 3 - PCV20 or PCV21) 12/28/2022 12/28/2017, 02/19/2015 COVID-19 VACCINE ( season) 2023 DEPRESSION SCREENING 04/04/2024 10/14/2023, 04/27/19 23 INFLUENZA VACCINE (Season Ended) 2024 04/16/2020, 02/14/2019, 12/28/2017, Additional history exists SCREENING FOR DIABETES 09/26/2026 , 09/27/2023, 08/17/2023, Additional history exists DTAP/TDAP/TD VACCINES (2 - Td or Tdap) 10/18/2028 10/18/2018 COLON MONITORING 05/16/2033 05/16/2023, , 06/15/2021 COLONOSCOPY - COLON CA SCREENING 05/16/2033 05/16/2023, 06/15/2021, 06/15/2021, Additional history exists Colorectal Cancer Screening 05/16/2033 HEPATITIS C SCREENING Completed 02/08/2023, 023 HIB VACCINE Aged Out No longer eligi ble based on patient's age to complete this topic HPV VACCINE Aged Out No longer eligi ble based on patient's age to complete this topic MENINGOCOCCAL (Group B) VACCINE SHARED DECISION-MAKING Aged Out No longer eligible based on patient's age to complete this topic MENINGOCOCCAL GROUPS A/C/Y/W VACCINE Aged Out No longer eligible based on patient's age to complete this topic Procedures Procedure Name Priority Date/Time Associated Diagnosis Comments COMPREHENSIVE METABOLIC PANEL Routine 02/08/2023 4:24 PM LENS GRINDER APPRENTICE Inflammatory arthritis HEPATITIS SCREEN ACUTE ([facility]) Routine 02/08/2023 4:23 PM LENS GRINDER APPRENTICE High risk medication use Fatigue, unspecified type COLONOSCOPY 06/15/2021 from Last 3 Months or Most Recently Relevant to Health Maintenance Results * (ABNORMAL) COMPREHENSIVE METABOLIC PANEL (02/08/2023 4:24 PM LENS GRINDER APPRENTICE) Glucose 86 70 - 105 mg/dL [facility] INSURANCE BILL BUN 10 7 - 26 mg/dL [facility] INSURANCE BILL Creatinine 1.42(H) 0.72 - 1.25 mg/dL [facility] INSURANCE BILL eGFR by CKD-EPI 58(L) >=90 mL/min/1.7 3 m2 [facility] INSURANCE BILL Sodium 138 136 - 145 mmol/L [facility] INSURANCE BILL Potassium 4.3 3.5 - 5.1 mmol/L [facility] INSURANCE BILL Chloride 106 98 - 107 mmol/L [facility] INSURANCE BILL CO2 23 22 - 29 mmol/L [facility] INSURANCE BILL Calcium 10.4 8.4 - 10.4 mg/dL [facility] INSURANCE BILL Protein Total 7.0 6.4 - 8.3 gm/dL [facility] INSURANCE BILL Albumin 3.8 3.4 - 5.0 gm/dL [facility] INSURANCE BILL Bilirubin Total 0.4 0.2 - 1.2 mg/dL [facility] INSURANCE BILL Alkaline Phosphatase 38(L) 40 - 150 U/L [facility] INSURANCE BILL AST 17 5 - 34 U/L [facility] INSURANCE BILL ALT 12 0 - 55 U/L [facility] INSURANCE BILL Blood BLOOD SPECIMEN / Unknown 02/08/2023 4:24 PM LENS GRINDER APPRENTICE 02/08/2023 Narrative Resulting Agency Comment Lab Testing performed at: [place] [address] [address] [id number] Falguni Gonzalez MD LAB - CHEMISTRY ORDERABLES Final Result [facility] INSURANCE BILL [address] [place] [address] * HEPATITIS SCREEN ACUTE ([facility]) (02/08/2023 4:23 PM LENS GRINDER APPRENTICE) Hepatitis A Virus Antibody IgM Non Reactive Non Reactive [facility] INSURANCE BILL Hepatitis B Virus Surface Antigen Non Reactive Non Reactive [facility] INSURANCE BILL Hepatitis B Core Virus Antibody IgM Non Reactive Non Reactive [facility] INSURANCE BILL Hepatitis C Antibody Non Reactive Non Reactive [facility] INSURANCE BILL Comment: Non Reactive - Antibodies to Hepatitis C virus (HCV) were no t detected, result does not exclude early acute HCV infection. Blood BLOOD SPECIMEN / Unknown 02/08/2023 4:23 PM LENS GRINDER APPRENTICE 02/08/2023 Narrative Resulting Agency Comment Lab Testing performed at: [place] [address] [address] [phone] us Falguni Gonzalez MD LAB - CHEMISTRY ORDERABLES Final Result [facility] INSURANCE BILL [address] [place] [address] * COLONOSCOPY (06/15/2021) 06/15/2021 Narrative 06/15/2021 Ordered by an unspecified provider. us Scanned Document SCANNING ONLY Final Result from Last 3 Months or Most Recently Relevant to Health Maintenance Insurance [employer] AETNA SELF PAY NO INSURANCE Member Subscriber Plan / Payer (Ef fective for All Dates) Name:Angle Montero Member ID:Not on file Relation to Subscriber:Not on file Name:ANGLE MONTERO Subscriber ID:Not on file Address: [address] [place] [phone] Payer ID:Not on file Group ID:Not on file Type:Self Pay Address: [place], [place] [address] SELF PAY NO INSURANCE Member Subscriber Plan / Payer (Ef fective for All Dates) Name:Angle Montero Member ID:Not on file Relation to Subscriber:Not on file Name:ANGLE MONTERO Subscriber ID:Not on file Address: [address] [place], [place] [id number] Payer ID:Not on file Group ID:Not on file Type:Self Pay Address: [place], [place] AETNA AETNA SELF PAY NO INSURANCE Member Subscriber Plan / Payer (Ef fective for All Dates) Name:Angle Montero Member ID:Not on file Relation to Subscriber:Not on file Name:ANGLE MONTERO Subscriber ID:Not on file Address: [address] [place], [place] [id number] Payer ID:Not on file Group ID:Not on file Type:Self Pay Address: [place], [place] * Guarantor: ANGLE MONTERO Account Type Relation to Patient Date of Phone Billing Address Personal/Family Spouse [address] [place] [phone] AETNA SELF PAY NO INSURANCE Member Subscriber Plan / Payer (Ef fective for All Dates) Name:Angle Montero Member ID:Not on file Relation to Subscriber:Not on file Name:MONTERO,ANGLE Subscriber ID:Not on file Address: [address] [place], [place] [id number] Payer ID:Not on file Group ID:Not on file Type:Self Pay Address: [place], [place] AETNA SELF PAY NO INSURANCE Member Subscriber Plan / Payer (Ef fective for All Dates) Name:Angle Montero Member ID:Not on file Relation to Subscriber:Not on file Name:MONTEROANGLE POWERS Subscriber ID:Not on file Address: [address] [place], [place] [id number] Payer ID:Not on file Group ID:Not on file Type:Self Pay Address: [place], [place] Care Teams Network Management Specialist Relationship Specialty Start Date End Date Hima Pope Update Information PCP - General 09/14/22 Falguni Gonzalez MD [address] [place] [phone] PCP - Attributed-[employer] 10/03/23
--- OUTSIDE RECORDS SUMMARY | 2024-09-17 01:03 | XMS_ITS | Encounter Summary ---
Author Organization [facility] Address [address] [place] [address] Phone Care Team Providers Care Petroleum Laboratory Technician Name Role Phone Can Puentes MD Primary Care Provi andria Hima Pope Primary Care Provider Herman Jackson MD Unavailable Gianfranco Bailey MD Unavailable + Falguni Gonzalez MD Unavailable Encounter Details Date Type Department Care Team (Late st Contact Info) Description 04/16/2017 Orders Only [facility] ProviderVaibhav MD [facility] [place] [address] Social History Tobacco Use Types Packs/Day Years Used Date Smoking Tobacco: Former Comments:Smoking History Pac ks/day: 2003 Packs Alcohol Use Standard Drinks/Week Comments Yes 0 (1 standard drink = 0.6 oz pur e alcohol) Sex and Gender Information Value Date Recorded Sex Assigned at Not on file Legal Sex Male 1:37 PM PROCESS DEVELOPMENT TECHNICIAN Gender Identity Not on file Sexual Orientation Not on file documented as of this encounter Plan of Treatment Not on file documented as of this encounter Procedures Procedure Name Priority Date/Time Associated Diagnosis Comments DISCHARGE LABORATORY CUMULATIVE REPORT 04/16/2017 12:00 AM PROCESS DEVELOPMENT TECHNICIAN documented in this encounter Results * DISCHARGE LABORATORY CUMULATIVE REPORT (04/16/2017 12:00 AM PROCESS DEVELOPMENT TECHNICIAN) Narrative 04/16/2017 12:00 AM PROCESS DEVELOPMENT TECHNICIAN Ordered by an unspecified provider. us Historical Provider LAB BLOOD ORDERABLES Joselyn l Result documented in this encounter Visit Diagnoses Not on filedocumented in this encounter Care Teams Petroleum Laboratory Technician Relationship Specialty Start Date End Date Can Puentes MD PCP - General 07/02/16 12/15/21 Hima Pope PA [address] [facility] [address] [place] [address] [place] [address] PCP - General Internal Medicine 12/16/21 [place] [address] [place] [address] [place] [address] Consulting Physician Endocrinology Diabetes & Metabolism 03/20/24 Gianfranco Bailey MD [address] [facility] [place], [place] [id number] Referring Physician Gastroenterology 07/30/24 Falguni Gonzalez MD [address] [place] [address] Referring Physician Rheumatology 07/30/24 documented as of this encounter
--- OUTSIDE RECORDS SUMMARY | 2024-09-17 01:03 | XMS_ITS | Clinical Summary ---
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 MAINTENANCE Final Result * Serum Hepatitis C ab (06/16/2012 4:27 PM CDT) HCV ab Negative Negative HISTORICAL RESULTS Serum 06/16/2012 4:27 PM CDT Yodit Uriarte MD LAB BLOOD ORDERABLES Final Resul t HISTORICAL RESULTS from Last 3 Months or Most Recently Relevant to Health Maintenance Insurance 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
[2024-09-17 06:29] VITALS: BP 172/84; PULSE 62; RESP 16; TEMP 36.2; O2SAT 99; BMI 32.2
[2024-09-17] MEDS: LACTATED RINGERS 1,000 ML 150 ML IV CONT (06:40)
[2024-09-17 07:08] LABS: Glucose Point of Care 144 mg/dl (65-105)
--- NOTE | 2024-09-17 07:15 | WPDANESEPPF ---
Anes - Initial Pre Proc Eval Procedure: Operation Date: 09/17/24 07:30 Proposed Procedures p Colonoscopy - Gianfranco Galdamez MD Date/Time: 09/17/24 07:15 Surgeon: Gianfranco Galdamez MD Pre Op Diagnosis: Crohns disease of both small and large intestine Patient Data Age: 59 Gender: M Height: 1.68 m Weight: 90.6 kg Last Vital Signs Temp 36.2 C L 09/17/24 06:29 Pulse 62 09/17/24 06:29 Resp 16 09/17/24 06:29 BP 172/84 H 09/17/24 06:29 Pulse Ox 99 09/17/24 06:29 O2 Del Method Room Air 09/17/24 06:29 Allergies Allergy/AdvReac Type Severity Reaction Status Date / Time No Known Allergies Allergy Verified 09/17/24 06:24 Home Medications ?Medication ?Instructions ?Recorded ?Confirmed ?Type aliskiren 300 mg tablet (Tekturna) 300 mg PO DAILY 04/28/23 09/03/24 History amlodipine 5 mg tablet (Norvasc) 5 mg PO DAILY 04/28/23 09/17/24 History atorvastatin 10 mg tablet (Lipitor) 10 mg PO DAILY 04/28/23 09/17/24 History chlorthalidone 25 mg tablet 25 mg PO DAILY 05/03/23 09/17/24 History fenofibrate micronized 134 mg 134 mg PO DAILY 05/03/23 09/17/24 History capsule hydroxychloroquine 400 mg tablet 400 mg PO DAILY 05/03/23 09/17/24 History insulin aspart See Rx Instructions .Route .COMPLEX 05/03/23 09/17/24 History (niacinamide)(U-100) 100 unit/mL(3 mL) subcutaneous pen (Fiasp FlexTouch U-100 Insulin) insulin glargine U-300 conc 300 70 unit subcut QACDINNER 05/03/23 09/17/24 History unit/mL (3 mL) subcutaneous pen (Toujeo Max U-300 SoloStar) zolpidem 12.5 mg tablet,extended 12.5 mg PO QHS 05/03/23 09/17/24 History release,multiphase J-Rlhagd-C-Cysteine 600 mg PO DAILY 05/04/23 09/17/24 History alpha lipoic acid 200 mg tablet 200 mg PO DAILY 05/04/23 09/17/24 History ascorbic acid (vitamin C) 1,000 mg 1 g PO DAILY 05/04/23 09/17/24 History tablet (Vitamin C With Estephania Hips) benfotiamine 300 mg PO BID 05/04/23 09/17/24 History cholecalciferol (vitamin D3) 50 50 mcg PO DAILY 05/04/23 09/17/24 History mcg (2,000 unit) capsule (Vitamin D3) clonidine HCl 0.1 mg tablet 0.1 mg PO DAILY 05/04/23 09/17/24 History coQ10 (ubiquinol) 200 mg capsule 200 mg PO DAILY 05/04/23 09/17/24 History cyanocobalamin (vitamin B-12) 250 250 mcg PO DAILY 05/04/23 09/17/24 History mcg tablet (Vitamin B-12) dicyclomine 20 mg tablet 20 mg PO TID PRN abdominal pain 05/04/23 09/03/24 History famotidine 40 mg tablet 40 mg PO BID 05/04/23 09/17/24 History folic acid 1 mg tablet 1 mg PO DAILY 05/04/23 09/17/24 History garlic 1,000 mg capsule 1,000 mg PO BID 05/04/23 09/17/24 History magnesium 250 mg tablet 250 mg PO DAILY 05/04/23 09/17/24 History melatonin 10 mg tablet 10 mg PO HS 05/04/23 09/17/24 History milk thistle 175 mg tablet 175 mg PO DAILY 05/04/23 09/17/24 History multivit with minerals-iron 18 1 tablet PO DAILY 05/04/23 09/17/24 History mg-folic ac 400 mcg-vit K 25 mcg tablet (Adults Multivitamin) omega 7-knq-fyh-fish oil 900 1 cap PO DAILY 05/04/23 09/17/24 History mg-1,400 mg capsule,delayed release vitamin K2 100 mcg capsule 100 mcg PO DAILY 05/04/23 09/17/24 History zinc 50 mg tablet 50 mg PO DAILY 05/04/23 09/17/24 History budesonide 3 mg 3 mg PO DAILY #30 ea 05/16/24 09/17/24 Rx capsule,delayed,extended release upadacitinib 30 mg tablet,extended 30 mg PO DAILY #90 tabs 06/04/24 09/17/24 Rx release 24 hr (Rinvoq) colestipol 1 gram tablet See Rx Instructions .Route 06/12/24 09/03/24 Rx .COMPLEX #180 tabs upadacitinib 30 mg tablet,extended 30 mg Tablet Extended Release 24 07/19/24 09/03/24 Sample release 24 hr (Rinvoq) Hr#15 Samples insulin degludec 100 unit/mL (3 70 unit subcut HS 09/03/24 09/17/24 History mL) subcutaneous pen olmesartan 40 mg tablet 40 mg PO DAILY 09/03/24 09/17/24 History Laboratory Tests 09/17/24 07:05 POC Capillary Glucose 144 H mg/dl (65-105) Patient hx anesthesia problems: none Family hx anesthesia problems: none Results Review: All pre-operative results and documents have been reviewed as part of the pre-operative evaluation. 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 High risk medication use Long-term current use of certolizumab pegol Crohn disease Social History Social History Smoking packs per day: 1 Smoking cigarettes per day: 20.0 Years smoked: 15 Smoking pack-years: 15.00 Smoking status: Former smoker Tobacco type: cigarettes Second hand tobacco smoke exposure: No Alcohol intake: never Substance use: never Substance use type: does not use Living arrangements: with family Spiritual care concerns: No Anes - Eval Final PreProcedure Day of Procedure 09/17/24 07:15 Patient weight: obese Heart: regular rate and rhythm Lungs: clear to auscultation Airway: Mallampati scale class III Neurological: alert and oriented Last oral intake: >/= 8 hours ASA classification: III Emergent: no Anesthetic plan: proceed Anesthesia type and monitoring: general GIVS and standard monitoring Results Review: All pre-operative results and documents have been reviewed as part of the pre-operative evaluation. Informed Consent: The patient's anesthetic plan and its attendant risks and benefits were discussed with the patient/family/POA. Questions were solicited and answers provided to the satisfaction of the patient/family/POA.
--- NOTE | 2024-09-17 07:49 | PM.HPGS ---
History of Present Illness History of Present Illness Consent: Risks, benefits, and alternatives have been discussed and questions answered. Patient agrees to proceed with procedure. Chief complaint: Crohns disease of both small and large intestine Narrative: Juan David Montero is a 59 year old male Crohn's disease now using Rinvoq. He was diagnosed with Crohn's disease in his 30s and has overlapping rheumatoid arthritis and follows with rheumatology. He has no history of bowel resections, fistulas or abscess. He used to be Cimzia and methotrexate and previously Enbrel for his RA along with Humira, and Stelara. He started induction Rinvoq 45 mg on 06/07/2023. 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 GERALDO (iron deficiency anemia) Rheumatoid arthritis Hematochezia Chronic diarrhea GERD (gastroesophageal reflux disease) Hx of duodenal ulcer 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, 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, 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 High risk medication use Long-term current use of certolizumab pegol Crohn disease Social History Social History Smoking packs per day: 1 Smoking cigarettes per day: 20.0 Years smoked: 15 Smoking pack-years: 15.00 Smoking status: Former smoker Tobacco type: cigarettes Second hand tobacco smoke exposure: No Alcohol intake: never Substance use: never Substance use type: does not use Living arrangements: with family Spiritual care concerns: No Meds Home Medications and Allergies Home Medications ?Medication ?Instructions ?Recorded ?Confirmed ?Type aliskiren 300 mg tablet (Tekturna) 300 mg PO DAILY 04/28/23 09/03/24 History amlodipine 5 mg tablet (Norvasc) 5 mg PO DAILY 04/28/23 09/17/24 History atorvastatin 10 mg tablet (Lipitor) 10 mg PO DAILY 04/28/23 09/17/24 History chlorthalidone 25 mg tablet 25 mg PO DAILY 05/03/23 09/17/24 History fenofibrate micronized 134 mg 134 mg PO DAILY 05/03/23 09/17/24 History capsule hydroxychloroquine 400 mg tablet 400 mg PO DAILY 05/03/23 09/17/24 History insulin aspart See Rx Instructions .Route .COMPLEX 05/03/23 09/17/24 History (niacinamide)(U-100) 100 unit/mL(3 mL) subcutaneous pen (Fiasp FlexTouch U-100 Insulin) insulin glargine U-300 conc 300 70 unit subcut QACDINNER 05/03/23 09/17/24 History unit/mL (3 mL) subcutaneous pen (Toujeo Max U-300 SoloStar) zolpidem 12.5 mg tablet,extended 12.5 mg PO QHS 05/03/23 09/17/24 History release,multiphase J-Fxeutl-E-Cysteine 600 mg PO DAILY 05/04/23 09/17/24 History alpha lipoic acid 200 mg tablet 200 mg PO DAILY 05/04/23 09/17/24 History ascorbic acid (vitamin C) 1,000 mg 1 g PO DAILY 05/04/23 09/17/24 History tablet (Vitamin C With Estephania Hips) benfotiamine 300 mg PO BID 05/04/23 09/17/24 History cholecalciferol (vitamin D3) 50 50 mcg PO DAILY 05/04/23 09/17/24 History mcg (2,000 unit) capsule (Vitamin D3) clonidine HCl 0.1 mg tablet 0.1 mg PO DAILY 05/04/23 09/17/24 History coQ10 (ubiquinol) 200 mg capsule 200 mg PO DAILY 05/04/23 09/17/24 History cyanocobalamin (vitamin B-12) 250 250 mcg PO DAILY 05/04/23 09/17/24 History mcg tablet (Vitamin B-12) dicyclomine 20 mg tablet 20 mg PO TID PRN abdominal pain 05/04/23 09/03/24 History famotidine 40 mg tablet 40 mg PO BID 05/04/23 09/17/24 History folic acid 1 mg tablet 1 mg PO DAILY 05/04/23 09/17/24 History garlic 1,000 mg capsule 1,000 mg PO BID 05/04/23 09/17/24 History magnesium 250 mg tablet 250 mg PO DAILY 05/04/23 09/17/24 History melatonin 10 mg tablet 10 mg PO HS 05/04/23 09/17/24 History milk thistle 175 mg tablet 175 mg PO DAILY 05/04/23 09/17/24 History multivit with minerals-iron 18 1 tablet PO DAILY 05/04/23 09/17/24 History mg-folic ac 400 mcg-vit K 25 mcg tablet (Adults Multivitamin) omega 1-unu-gin-fish oil 900 1 cap PO DAILY 05/04/23 09/17/24 History mg-1,400 mg capsule,delayed release vitamin K2 100 mcg capsule 100 mcg PO DAILY 05/04/23 09/17/24 History zinc 50 mg tablet 50 mg PO DAILY 05/04/23 09/17/24 History budesonide 3 mg 3 mg PO DAILY #30 ea 05/16/24 09/17/24 Rx capsule,delayed,extended release upadacitinib 30 mg tablet,extended 30 mg PO DAILY #90 tabs 06/04/24 09/17/24 Rx release 24 hr (Rinvoq) colestipol 1 gram tablet See Rx Instructions .Route 06/12/24 09/03/24 Rx .COMPLEX #180 tabs upadacitinib 30 mg tablet,extended 30 mg Tablet Extended Release 24 07/19/24 09/03/24 Sample release 24 hr (Rinvoq) Hr#15 Samples insulin degludec 100 unit/mL (3 70 unit subcut HS 09/03/24 09/17/24 History mL) subcutaneous pen olmesartan 40 mg tablet 40 mg PO DAILY 09/03/24 09/17/24 History Allergies Allergy/AdvReac Type Severity Reaction Status Date / Time No Known Allergies Allergy Verified 09/17/24 06:24 Vital Signs Vital Signs - 24 hr 09/17/24 06:29 Temperature 97.2 F L Pulse Rate 62 Respiratory Rate 16 Blood Pressure 172/84 H Pulse Oximetry 99 Oxygen Delivery Room Air Exam Const: General: comfortable and no acute distress HENMT: Face/Nose/Sinus: Normal nares present Eyes: General: appearance normal, both eyes and all related structures Neck: Neck: no JVD Resp: Auscultation: clear to auscultation bilaterally Cardio: Rate: regular rate Rhythm: regular rhythm GI: Inspection: non-distended GI Palp: Yes Soft to palpation Skin: General skin exam: normal color Neuro: Speech: normal speech Extrem: General: normal to inspection Psych: Mental Status: mental status grossly normal Assessment and Plan Assessment and plan (1) Crohn disease: Qualifiers: Gastrointestinal tract location: small and large intestine Digestive disease complication type: with rectal bleeding Qualified Code(s): K50.811 - Crohn's disease of both small and large intestine with rectal bleeding Code(s): K50.90 - Crohn's disease, unspecified, without complications Status: Acute [facility] and [facility]
[2024-09-17 07:50] VITALS: BP 101/36; PULSE 56; RESP 15; O2SAT 95
--- NOTE | 2024-09-17 07:50 | S_PTH ---
PATIENT: Juan David Montero V LOC: [facility] Yap#:[id number] AGE/SX: 59/M ROOM: RE09/17/[address]: Gianfranco Galdamez MD : [id number] BED: DIS: 09/17/2024 SPEC #: [id number] RECD: 09/17/24 10:56 STATUS: LEX REZoran #: [id number] JASVIR: 09/17/24 07:[address]: Gianfranco Galdamez DEPT: [facility] Surgical RECD BY: Brigette Braswell ENTERED: 09/17/24 10:57 SP TYPE: Surgical OTHR DR: Hima Pope, PA Tissues: A - Colon Polypectomy B - Colon Polypectomy C - Colon Biopsy D - Colon Biopsy Procedures: Hematoxylin and Eosin Stain Gross and Microscopic Level 4
[2024-09-17 08:00] VITALS: BP 111/40; PULSE 53; RESP 17; O2SAT 96
[2024-09-17 08:10] VITALS: BP 111/40; PULSE 55; RESP 18; O2SAT 96
[2024-09-17 08:12] LABS: Glucose Point of Care 138 mg/dl (65-105)
--- NOTE | 2024-09-17 08:20 | SUR.PHASEII ---
pt ready for discharge but is still over 30 minutes away, she is taking their dog to vet appt and will be here after appt. pt moved to holding room 8.
== END 2024-09-17 08:56 | disposition home or self-care (01) ==
PROVIDERS: PCP Physician Assistant; Referring Provider Internal Medicine Gastroenterology; Visit Provider Internal Medicine Gastroenterology
PROC: 0DJD8ZZ Inspection of Lower Intestinal Tract, Via Natural or Artificial Opening Endoscopic (ICD-10-PCS; CPT 45378; principal; 2024-09-17 07:30)
DX: K50.811 Crohn's disease of both small and large intestine with rectal bleeding (principal); K63.5 Polyp of colon; Z79.620 Long term (current) use of immunosuppressive biologic; Z87.891 Personal history of nicotine dependence; E66.9 Obesity, unspecified; Z68.32 Body mass index [BMI] 32.0-32.9, adult
CPT/HCPCS: 45380; 45385; 82948; 88305; J2704; J7120